=== PATIENT | female | born 1980 | race Caucasian/White ===

== ENCOUNTER 2017-02-10 20:58 | Emergency (ER) | payer OTHER ==
[~2017-02-10] VITALS: Ht 172.7 cm; Wt 77.0 kg
[~2017-02-10 20:58] MED LIST: AMITRIPTYLINE H10 MG PO; ATARAX,VISTARIL50 MG PO; MECLIZINE HCL25 MG PO; PAROXETINE HCL40 MG PO; PEPCID20 MG PO; PREDNISONE20 MG PO
[2017-02-10 21:31] VITALS: BP 115/89
== END 2017-02-10 21:32 | disposition home or self-care (01) ==
LOC: EME 20:58
DX: T78.40XA Allergy, unspecified, initial encounter (principal)
CPT/HCPCS: 99281; 99283; J1100

== ENCOUNTER 2017-05-23 03:01 | Observation (INO) | payer OTHER ==
[~2017-05-23] VITALS: Ht 172.7 cm; Wt 75.7 kg
[2017-05-23 04:22] LABS: HEMATOCRIT 40.6 % (36.0-46.0); MCH 32.8 PG (29.0-34.0); MCHC 34.2 G/DL (30.0-36.0); MCV 95.8 FL (83-99); MEAN PLAT.VOLUME 9.9 uM^3 (9.5-12.4); PLATELET COUNT 107 K/uL (156-360); RBC DIS.WIDTH-CV 12.6 % (11.8-14.6); RBC DIS.WIDTH-SD 44.9 % (39-53); RED BLOOD COUNT 4.24 M/uL (3.80-5.20); WHITE BLOOD COUNT 7.6 K/uL (4.1-10.2)
[2017-05-23 04:32] LABS: CHLORIDE 104 mEq/L (99-109); POTASSIUM 3.6 mEq/L (3.7-5.4); SODIUM 139 mEq/L (136-147)
[2017-05-23 04:33] LABS: GLUCOSE 117 mg/dL (70-99)
[2017-05-23 04:35] LABS: ANION GAP 10 MEQ/L (2-14)
[2017-05-23 04:37] LABS: GFR ESTIMATE (CALCULATED) > 59 mL/min/
[2017-05-23 04:38] LABS: UREA NITROGEN (BUN) 5 mg/dL (9-23)
[2017-05-23 05:51] LABS: D-DIMER ELISA 0.46 mg/L FEU (< 0.57)
[2017-05-23 06:04] LABS: TROP-I INTERPRETATION NEGATIVE; TROPONIN-I < 0.01 ng/mL (0.0-0.30)
[2017-05-23] MEDS ORDERED: CYMBALTA60 MG PO (06:20)
[2017-05-23] MEDS ORDERED: FLOVENT 44120 INHALA IH (06:21)
[2017-05-23] MEDS ORDERED: VENTOLIN HFA18 GM IH (06:21)
[2017-05-23 07:38] VITALS: BP 104/56
[2017-05-23 12:09] VITALS: BP 111/64
[2017-05-23] MEDS ORDERED: FLOVENT 11120 INHALA IH (15:25)
[2017-05-23 15:40] VITALS: BP 99/65
[2017-05-23 19:00] VITALS: BP 108/65
[2017-05-23 23:35] VITALS: BP 111/66
[2017-05-24 04:03] VITALS: BP 122/73
[2017-05-24 06:26] LABS: ANION GAP 6 MEQ/L (2-14); CHLORIDE 108 MEQ/L (99-109); GFR ESTIMATE (CALCULATED) > 59 mL/min/; GLUCOSE 166 mg/dL (70-99); POTASSIUM 4.2 MEQ/L (3.7-5.4); SAMPLE HEMOLYSIS CHECK 0; SAMPLE ICTERIC CHECK 0; SAMPLE LIPEMIA CHECK 0; SODIUM 140 MEQ/L (136-147); UREA NITROGEN (BUN) 7 mg/dL (9-23)
[2017-05-24 07:10] VITALS: BP 111/71
[2017-05-24 08:35] LABS: HIV INDEX 0.08; HIV-1/2 AB/AG COMBO Nonreactive
[2017-05-24 11:15] VITALS: BP 113/67
[2017-05-24] MEDS ORDERED: INCRUSE ELLI62.5 MCG IH (14:23)
[2017-05-24] MEDS ORDERED: SINGULAIR10 MG PO (14:23)
[2017-05-24] MEDS ORDERED: PREDNISONE10 MG PO (14:24)
[2017-05-24] MEDS ORDERED: MUCINEX1200 MG PO (14:24)
[2017-05-24] MEDS ORDERED: CEFTIN500 MG PO (14:24)
== END 2017-05-24 14:50 | disposition home or self-care (01) ==
LOC: EME 03:01 → EDOF 06:25 → 5WEST 07:21
PROVIDERS: Emergency Medicine; Hospitalist; Internal Medicine Pulmonary Disease
DX: J45.901 Unspecified asthma with (acute) exacerbation (principal); F17.210 Nicotine dependence, cigarettes, uncomplicated; Z91.09 Other allergy status, other than to drugs and biological substances; J40 Bronchitis, not specified as acute or chronic; R00.0 Tachycardia, unspecified; R07.9 Chest pain, unspecified
CPT/HCPCS: 71020; 80048; 82785 90; 84484; 85027; 85379; 86703; 93005; 94640; 94640 76; 94644; 94760; 94799; 99202; 99281; 99285; G0378; J0696; J1650; J2930; J3475; J7030; J7050

== ENCOUNTER 2018-06-23 19:02 | Emergency (ER) | payer OTHER ==
[~2018-06-23] VITALS: Ht 172.7 cm; Wt 72.5 kg
[~2018-06-23 19:02] MED LIST changes: +CEFTIN500 MG PO; +CYMBALTA60 MG PO; +FLOVENT 11120 INHALA IH; +FLOVENT 44120 INHALA IH; +INCRUSE ELLI62.5 MCG IH; +MUCINEX1200 MG PO; +PREDNISONE10 MG PO; +SINGULAIR10 MG PO; +VENTOLIN HFA18 GM IH
[2018-06-23 19:37] LABS: APPEARANCE CLEAR ((CLEAR)); BILIRUBIN NEGATIVE; BLOOD LARGE; COLOR YELLOW ((YELLOW)); GLUCOSE (STRIP) NEGATIVE; KETONES NEGATIVE; LEUKOCYTES NEGATIVE; NITRITE NEGATIVE; PROTEIN (STRIP) NEGATIVE; SPECIFIC GRAVITY 1.014 (1.000-1.030); UROBILINOGEN 0.2 MG/DL (0.2-1.0)
[2018-06-23 20:01] LABS: BACTERIA NONE SEEN /HPF; EPITHELIAL CELLS RARE /HPF; MUCUS TRACE /LPF; UCUL ADDED? NO; WHITE BLOOD CELLS 0-5 /HPF (0-5)
[2018-06-23] MEDS ORDERED: PYRIDIUM200 MG PO (21:32)
[2018-06-23] MEDS ORDERED: ATARAX,VISTARIL25 MG PO (21:32)
[2018-06-23 22:02] VITALS: BP 129/85
== END 2018-06-23 22:07 | disposition home or self-care (01) ==
LOC: EME 19:02
DX: N30.10 Interstitial cystitis (chronic) without hematuria (principal); M79.7 Fibromyalgia; K21.9 Gastro-esophageal reflux disease without esophagitis; F17.200 Nicotine dependence, unspecified, uncomplicated; Z87.440 Personal history of urinary (tract) infections
CPT/HCPCS: 80048; 81003; 85025; 99281; 99284; Q0177